=== PATIENT | female | born 1990 | race Caucasian/White ===

== ENCOUNTER 2025-04-11 00:10 | Emergency (ER) | payer SELFPAY ==
[2025-04-11 00:15] VITALS: BP 138/74; PULSE 86; RESP 18; TEMP 97.9; BMI 31.6
[2025-04-11] MEDS ORDERED: diphenhydrAMINE HCL 25 MG CAPSULE (FP) PO ONE ×2 (00:24→00:26)
[2025-04-11] MEDS ORDERED: DEXAMETHASONE 4 MG TABLET (FP) ONE (00:27)
[2025-04-11] MEDS ORDERED: FAMOTIDINE 20 MG TABLET ONE (00:27)
[2025-04-11] MEDS: FAMOTIDINE 20 MG TABLET PO ONE (00:30)
[2025-04-11] MEDS: diphenhydrAMINE HCL 25 MG CAPSULE (FP) PO ONE (00:30)
[2025-04-11] MEDS: DEXAMETHASONE 4 MG TABLET (FP) PO ONE (00:30)
== END 2025-04-11 01:14 | disposition home or self-care (01) ==
LOC: JER 00:10
DX: L50.0 Allergic urticaria (principal); L29.9 Pruritus, unspecified
CPT/HCPCS: 99283-25